=== PATIENT | male | born 1980 | race Hispanic/Latino ===

== ENCOUNTER 2016-12-01 09:47 | Emergency (ER) | payer SELFPAY ==
[2016-12-01] MEDS ORDERED: Fluconazole 100 MG TAB ONE (10:28)
== END 2016-12-01 10:34 | disposition home or self-care (01) ==
LOC: MADERS 09:47
DX: L30.9 Dermatitis, unspecified (principal)
CPT/HCPCS: 99284

== ENCOUNTER 2017-02-06 20:44 | Emergency (ER) | payer SELFPAY | END 2017-02-06 22:25 | disposition home or self-care (01) | LOC: MADERS 20:44 | DX: L73.9 Follicular disorder, unspecified (principal) | CPT/HCPCS: 96372; J1040 ==

== ENCOUNTER 2017-02-23 19:20 | Emergency (ER) | payer SELFPAY | END 2017-02-23 20:04 | disposition home or self-care (01) | LOC: MADERS 19:20 | DX: B86 Scabies (principal) | CPT/HCPCS: 96372 ==

== ENCOUNTER 2020-02-29 20:01 | Emergency (ER) | payer SELFPAY ==
[2020-02-29] MEDS ORDERED: Dexamethasone 4 MG TAB ONE (20:22)
[2020-02-29] MEDS ORDERED: Cephalexin 500 MG CAP ONE (20:22)
== END 2020-02-29 20:29 | disposition home or self-care (01) ==
LOC: MADERS 20:01
DX: L73.9 Follicular disorder, unspecified (principal); L29.9 Pruritus, unspecified
CPT/HCPCS: 99282; J8540

== ENCOUNTER 2020-03-12 10:26 | Emergency (ER) | payer SELFPAY ==
[2020-03-12] MEDS ORDERED: Lidocaine Viscous Sol 2% 15 ml UD Cup ONE (11:07)
[2020-03-12] MEDS ORDERED: Ondansetron ODT 4 MG TAB ONE (11:07)
[2020-03-12] MEDS ORDERED: Sucralfate 1 GM TAB ONE (11:07)
[2020-03-12] MEDS ORDERED: Milk Of Magnesia 30 ML UDCUP ONE (11:07)
[2020-03-12 11:21] LABS: #Basophils 0.1 thou/uL (0.0-0.2); #Eosinphils 0.1 thou/uL (0.0-0.7); #Lymphocytes 1.6 thou/uL (1.20-3.40); #Monocytes 0.5 thou/uL (0.11-0.59); #Neutrophils 4.7 thou/uL (1.40-6.50); %Basophils 1.1 % (0.0-1.0); %Lymphocytes 23.6 % (21.0-51.0); %Monocytes 6.4 % (0.0-10.0); %Neutrophils 67.9 % (42.0-75.0); Hemoglobin 13.2 g/dL (14.0-18.0); Mean Corpuscular HGB CONC 34.1 g/dL (32.0-36.0); Mean Corpuscular Hemoglobin 30.6 pg (27.0-31.0); Mean Corpuscular Volume 89.6 fL (78.0-98.0); Mean Platelet Volume 8.1 fL (7.4-10.4); Platelet Count 226 thou/uL (130-400); RBC Distribution Width 12.2 % (11.5-14.5); White Blood Cell (WBC) Count 6.9 thou/uL (4.8-10.8)
[2020-03-12 11:37] LABS: ALT (SGPT) 48 U/L (8-55); AST (SGOT) 34 U/L (5-34); Albumin 3.8 g/dL (3.5-5.0); Alkaline Phosphatase 49 U/L (40-110); Anion Gap 13 mmol/L (10-20); BUN (Urea Nitrogen) 7 mg/dL (8.9-20.6); Bilirubin, Total 0.7 mg/dL (0.2-1.2); Calc. Creatinine Clearance 0 mL/min (70-130); Calcium 8.5 mg/dL (7.8-10.44); Carbon Dioxide 24 mmol/L (22-29); Chloride 107 mmol/L (98-107); Estimated GFR-MDRD Greater than 90; Globulin 2.5 g/dL (2.4-3.5); Glucose 105 mg/dL (70-105); Lipase 10 U/L (8-78); Protein, Total 6.3 g/dL (6.0-8.3); Sodium 141 mmol/L (136-145)
[2020-03-12 11:44] LABS: Potassium 2.8 mmol/L (3.5-5.1)
[2020-03-12] MEDS ORDERED: Potassium Chloride 20 MEQ TAB ONE (11:49)
== END 2020-03-12 12:00 | disposition home or self-care (01) ==
LOC: MADERS 10:26
DX: K29.70 Gastritis, unspecified, without bleeding (principal); E87.6 Hypokalemia
CPT/HCPCS: 36415; 80053; 83690; 85025; 93005; Q0162

== ENCOUNTER 2020-03-15 19:04 | Emergency (ER) | payer SELFPAY ==
[~2020-03-15 19:04] MED LIST: Iopamidol 370 76% 100 ML VIAL ONE
[2020-03-15] MEDS ORDERED: Ondansetron PF 4 MG/2 ML Vial ONE (19:28)
[2020-03-15] MEDS ORDERED: Sodium Chloride 0.9% 1,000 ML ONE (19:28)
[2020-03-15 19:55] LABS: #Basophils 0.1 thou/uL (0.0-0.2); #Lymphocytes 1.1 thou/uL (1.20-3.40); #Monocytes 0.4 thou/uL (0.11-0.59); #Neutrophils 7.3 thou/uL (1.40-6.50); %Basophils 0.9 % (0.0-1.0); %Eosinophils 0.2 % (0.0-10.0); %Lymphocytes 12.5 % (21.0-51.0); %Monocytes 4.5 % (0.0-10.0); Hemoglobin 14.6 g/dL (14.0-18.0); Mean Corpuscular HGB CONC 34.2 g/dL (32.0-36.0); Mean Corpuscular Hemoglobin 30.4 pg (27.0-31.0); Mean Corpuscular Volume 88.9 fL (78.0-98.0); Mean Platelet Volume 7.9 fL (7.4-10.4); Platelet Count 289 thou/uL (130-400); RBC Distribution Width 12.1 % (11.5-14.5); Red Blood Cell (RBC) Count 4.82 mill/uL (4.70-6.10); White Blood Cell (WBC) Count 8.9 thou/uL (4.8-10.8)
[2020-03-15] MEDS ORDERED: Morphine 4 MG/ML VIAL ONE (20:06)
[2020-03-15] MEDS ORDERED: Morphine 2 MG/ML SYRINGE ONE (20:07)
[2020-03-15 20:08] LABS: ALT (SGPT) 44 U/L (8-55); AST (SGOT) 28 U/L (5-34); Albumin 4.4 g/dL (3.5-5.0); Alkaline Phosphatase 62 U/L (40-110); Anion Gap 16 mmol/L (10-20); BUN (Urea Nitrogen) 9 mg/dL (8.9-20.6); Bilirubin, Total 0.7 mg/dL (0.2-1.2); Calc. Creatinine Clearance 0 mL/min (70-130); Carbon Dioxide 23 mmol/L (22-29); Chloride 106 mmol/L (98-107); Estimated GFR-MDRD 88; Globulin 2.8 g/dL (2.4-3.5); Glucose 101 mg/dL (70-105); Lipase 7 U/L (8-78); Potassium 3.2 mmol/L (3.5-5.1); Protein, Total 7.2 g/dL (6.0-8.3); Sodium 142 mmol/L (136-145)
[2020-03-15] MEDS ORDERED: Lidocaine Viscous Sol 2% 15 ml UD Cup ONE (20:46)
[2020-03-15] MEDS ORDERED: Mag-Al Plus 1200 MG/1200 MG/120 MG/30 ML UDCUP ONE (20:46)
[2020-03-15] MEDS ORDERED: Sucralfate 1 GM TAB ONE (20:46)
[2020-03-15] MEDS ORDERED: Pantoprazole 40 MG VIAL ONE (20:46)
--- NOTE | 2020-03-15 21:34 | CT ---
CT ABDOMEN AND PELVIS WITH IV CONTRAST: 03/15/20 HISTORY: Abdominal pain. COMPARISON: None. FINDINGS: The lung bases are clear. There is suggestion of mild eccentric wall thickening involving the distal esophagus. Endoscopy is re commended for further evaluation. A subcentimeter too small to characterize hypodense lesion is seen in the posteromedial aspect of the right hepatic lobe which is too small to further characterize. Liver otherwise has a normal CT appea demarcus. Splenic granuloma is present. The pancreas, bilateral adrenal glands, kidneys, abdominal aorta, and urinary bladder demonstrate a n ormal CT appearance. Loops of small bowel are normal in caliber. Small amount of retained fecal material is seen within th e colon. The appendix is visualized and normal in caliber. No free fluid, fluid collection, or lymphadenopathy is seen in the abdomen or pelvis. No suspicious lytic or sclerotic osseous lesions are identified. IMPRESSION: 1. There is motion through the upper abdomen with artifact present which limits adequate evaluat ion. There is suggestion of eccentric thickening involving the distal esophagus. This in part could potentially be related to small hiatal hernia. Upper GI versus endoscopy is recommended for further e valuation of this finding. 2. Too small to characterize subcentimeter hypodense lesion right hepatic lobe. 3. No CT evidence of appendicitis, and no acute findings are seen in the abdomen or pelvis. POS: C
[2020-03-15] MEDS ORDERED: Metoclopramide HCl 10 MG/2 ML VIAL ONE (22:15)
[2020-03-15] MEDS ORDERED: Hydrochlorothiazide 25 MG TAB ONE (22:26)
== END 2020-03-15 22:40 | disposition home or self-care (01) ==
LOC: MADERS 19:04
DX: K29.70 Gastritis, unspecified, without bleeding (principal); E87.6 Hypokalemia; I10 Essential (primary) hypertension
CPT/HCPCS: 74177; 80053; 83605; 83690; 85025; 96361; 96374; 96375; C9113; J2270; J2405; J2765; J7050; Q9967

== ENCOUNTER 2020-03-18 00:43 | Emergency (ER) | payer SELFPAY ==
[2020-03-18 01:23] LABS: %Lymphocytes 21.9 % (21.0-51.0); %Monocytes 10.3 % (0.0-10.0); %Neutrophils 65.7 % (42.0-75.0); Hemoglobin 16.9 g/dL (14.0-18.0); Mean Corpuscular HGB CONC 34.2 g/dL (32.0-36.0); Mean Corpuscular Hemoglobin 29.8 pg (27.0-31.0); Mean Corpuscular Volume 87.2 fL (78.0-98.0); Mean Platelet Volume 7.6 fL (7.4-10.4); Platelet Count 358 thou/uL (130-400); RBC Distribution Width 11.9 % (11.5-14.5); Red Blood Cell (RBC) Count 5.69 mill/uL (4.70-6.10); White Blood Cell (WBC) Count 8.9 thou/uL (4.8-10.8)
[2020-03-18] MEDS ORDERED: Ondansetron PF 4 MG/2 ML Vial ONE (01:23)
[2020-03-18] MEDS ORDERED: Pantoprazole 40 MG VIAL ONE (01:23)
[2020-03-18] MEDS ORDERED: Sodium Chloride 0.9% 100 ML ONE (01:23)
[2020-03-18] MEDS ORDERED: Promethazine HCl 25 MG/ML VIAL ONE (01:23)
[2020-03-18] MEDS ORDERED: Sodium Chloride 0.9% 1,000 ML ONE ×2 (01:23→02:15)
[2020-03-18 01:24] LABS: #Neutrophils 5.9 thou/uL (1.40-6.50); %Basophils 1.5 % (0.0-1.0); %Eosinophils 0.7 % (0.0-10.0)
[2020-03-18 01:25] LABS: #Basophils 0.1 thou/uL (0.0-0.2); #Eosinphils 0.1 thou/uL (0.0-0.7); #Monocytes 0.9 thou/uL (0.11-0.59)
[2020-03-18 01:34] LABS: ALT (SGPT) 38 U/L (8-55); AST (SGOT) 27 U/L (5-34); Albumin 4.7 g/dL (3.5-5.0); Alkaline Phosphatase 64 U/L (40-110); Anion Gap 20 mmol/L (10-20); BUN (Urea Nitrogen) 26 mg/dL (8.9-20.6); Bilirubin, Total 1.2 mg/dL (0.2-1.2); Calc. Creatinine Clearance 0 mL/min (70-130); Calcium 9.6 mg/dL (7.8-10.44); Carbon Dioxide 25 mmol/L (22-29); Chloride 93 mmol/L (98-107); Estimated GFR-MDRD 60; Globulin 3.1 g/dL (2.4-3.5); Glucose 114 mg/dL (70-105); Lipase 12 U/L (8-78); Potassium 3.1 mmol/L (3.5-5.1); Protein, Total 7.8 g/dL (6.0-8.3); Sodium 135 mmol/L (136-145)
[2020-03-18] MEDS ORDERED: Lorazepam 2 MG/ML VIAL ONE ×2 (01:44→02:06)
[2020-03-18 01:53] LABS: CKMB 2.6 ng/mL (0-6.6)
--- NOTE | 2020-03-18 07:38 | RAD ---
Exam: Chest one view Abdomen 2 views HISTORY: Emesis. Epigastric pain. FINDINGS: Chest one view: Atherosclerosis of the aorta. Normal cardiac silhouette. Pulmonary vessels and hilum are normal. Costophrenic angles are clear. Chronic changes, without consolidation or mass. No pneumothorax or acute osseous abnormalities Abdomen 2 views: Nonspecific bowel gas pattern. Scattered fecal material in a nondistended, nondilate d colon. No suspicious densities in the abdomen or pelvis. No acute osseous abnormalities. No pneumoperitoneum. IMPRESSION: 1. No acute cardiopulmonary process 2. Nonspecific bowel gas pattern.
== END 2020-03-18 02:16 | disposition short-term general hospital (02) ==
LOC: MADERS 00:43
DX: R11.2 Nausea with vomiting, unspecified (principal); R10.11 Right upper quadrant pain; I10 Essential (primary) hypertension; R79.89 Other specified abnormal findings of blood chemistry; Z79.899 Other long term (current) drug therapy
CPT/HCPCS: 74022; 80053; 82553; 83605; 83690; 84484; 85025; 93005; 96374; 96375; C9113; J2060; J2405; J2550; J3490; J7050

== ENCOUNTER 2020-06-08 11:30 | Emergency (ER) | payer SELFPAY ==
[2020-06-08] MEDS ORDERED: Ibuprofen 800 MG TAB ONE (12:28)
[2020-06-08] MEDS ORDERED: Cephalexin 500 MG CAP ONE (12:28)
[2020-06-08] MEDS ORDERED: HYDROcodone/Acetaminophen 5/325 mg Tablet ONE (12:28)
[2020-06-08] MEDS ORDERED: Erythromycin Base 0.5% Ophth Oint 3.5 gm Tube ONE (12:39)
== END 2020-06-08 12:53 | disposition home or self-care (01) ==
LOC: MADERS 11:30
DX: L73.9 Follicular disorder, unspecified (principal); L03.119 Cellulitis of unspecified part of limb; K13.0 Diseases of lips; H60.13 Cellulitis of external ear, bilateral
CPT/HCPCS: 99283